=== PATIENT | female | born 1940 | race Caucasian/White ===

== ENCOUNTER → 2020-11-24 | Outpatient (CLI) | payer MEDICARE | END | disposition home or self-care (01) | LOC: ROC 10:55 | PROVIDERS: ATTEND Radiology Radiation Oncology | DX: C50.412 Malignant neoplasm of upper-outer quadrant of left female breast (principal); C50.812 Malignant neoplasm of overlapping sites of left female breast | CPT/HCPCS: 99214; G0463 ==

== ENCOUNTER 2020-12-08 06:04 | Day surgery (SDC) | payer MEDICARE ==
[~2020-12-08] VITALS: Ht 160 cm; Wt 51.5 kg
[~2020-12-08 06:04] MED LIST: ASPI81TA45 PO; ATOR40TA78 PO; CALC-534 PO; DULO60CA7 PO; LEVO25TA4 PO; MAGNESIUM PO; METO25TA35 PO; OXYB5TAB10 PO; TRAZ50TA66 PO
[2020-12-08 07:15] VITALS: BP 176/66
[2020-12-08] MEDS ORDERED: LACTATED RINGERS 1,000 ML IV SCH (07:30)
[2020-12-08] MEDS ORDERED: CHLORHEXIDINE 15 ML UDC PO ONE (07:30)
[2020-12-08] MEDS ORDERED: BUPIVACAINE/PF 0.5% ONE (08:59)
[2020-12-08] MEDS ORDERED: EPINEPHRINE 1 MG/ML, 1ML ONE (08:59)
[2020-12-08] MEDS ORDERED: METHYLENE BLUE 50 MG/10 ML AMP ONE (08:59)
[2020-12-08] MEDS ORDERED: EPHEDRINE 50 MG/ML, 1ML ONE (09:29)
[2020-12-08] MEDS ORDERED: morphine SULFATE 10 MG/ML, 1ML IVPush PRN (09:30)
[2020-12-08] MEDS ORDERED: PROMETHAZINE 25 MG/ML, 1ML IVPush PRN (09:30)
[2020-12-08] MEDS ORDERED: hydrALAzine 20 MG/ML, 1ML IV PRN (09:30)
[2020-12-08] MEDS ORDERED: FENTANYL PF 100 MCG/2ML IV PRN (09:30)
[2020-12-08] MEDS ORDERED: ACETAMINOPHEN 325 MG TABLET PO PRN (09:30)
[2020-12-08] MEDS ORDERED: MEPERIDINE/PF 25MG/0.5ML IVPush PRN (09:30)
[2020-12-08] MEDS ORDERED: HYDROmorphone 1 MG/ML, 1ML INJ IVPush PRN (09:30)
[2020-12-08] MEDS ORDERED: LABETALOL 5MG/ML, 20ML IV PRN (09:30)
[2020-12-08] MEDS ORDERED: HALOPERIDOL 5 MG/ML IV PRN (09:30)
[2020-12-08] MEDS ORDERED: OXYcodone 5 MG/5 ML ORAL.SOL UDC PO PRN (09:30)
[2020-12-08] MEDS ORDERED: FENTANYL PF 250 MCG/5ML ONE (09:36)
[2020-12-08] MEDS ORDERED: CEFAZOLIN 1,000 MG ONE (09:36)
[2020-12-08] MEDS ORDERED: ONDANSETRON 2MG/ML, 2ML ONE (09:36)
[2020-12-08] MEDS ORDERED: PROPOFOL 10 MG/ML, 20ML ONE (09:36)
[2020-12-08] MEDS ORDERED: DEXAMETHASONE 4 MG/ML, 1ML ONE (09:36)
[2020-12-08] MEDS ORDERED: TRAM-47 PO (10:57)
== END 2020-12-08 13:22 | disposition home or self-care (01) ==
LOC: OUT 06:04 → EDSTATUS 10:30 → OUT 13:22
PROVIDERS: ATTEND Surgery
DX: C50.412 Malignant neoplasm of upper-outer quadrant of left female breast (principal); I10 Essential (primary) hypertension; E78.5 Hyperlipidemia, unspecified; E03.9 Hypothyroidism, unspecified; Z17.0 Estrogen receptor positive status [ER+]; Z79.82 Long term (current) use of aspirin; Z79.890 Hormone replacement therapy; Z79.891 Long term (current) use of opiate analgesic; Z79.899 Other long term (current) drug therapy; Z80.3 Family history of malignant neoplasm of breast; Z82.49 Family history of ischemic heart disease and other diseases of the circulatory system; Z82.3 Family history of stroke
CPT/HCPCS: 19301; 38525; 38792; 88305; 88307; A9541; J0171; J0690; J1100; J2405; J2704; J3010; J7120; Q9968

== ENCOUNTER 2020-12-22 08:10 | Outpatient (CLI) | payer MEDICARE ==
[~2020-12-22 08:10] MED LIST changes: +TRAM-47 PO
== END 2020-12-22 23:59 | disposition home or self-care (01) ==
LOC: ROC 08:10
PROVIDERS: ATTEND Radiology Radiation Oncology
DX: Z08 Encounter for follow-up examination after completed treatment for malignant neoplasm (principal); Z85.3 Personal history of malignant neoplasm of breast; I10 Essential (primary) hypertension; Z17.0 Estrogen receptor positive status [ER+]; E78.5 Hyperlipidemia, unspecified; E03.9 Hypothyroidism, unspecified; Z79.891 Long term (current) use of opiate analgesic; Z79.82 Long term (current) use of aspirin; Z79.899 Other long term (current) drug therapy
CPT/HCPCS: 99212; G0463